=== PATIENT | male | born 1945 | race Caucasian/White ===

== ENCOUNTER 2017-01-07 12:29 | Emergency (ER) | payer MEDICARE ==
--- NOTE | 2017-01-07 13:27 | ERPHSYRPT ---
- History of Present Illness Time Seen by Provider: 01/07/17 13:23 Source: patient, family Exam Limitations: no limitations Patient Subjective Stated Complaint: PT REPORTS YESTERDAY PT COULDN'T GET OUT OF THE CHAIR-INCREASED WEAKNESS-COULDN'T FIGURE OUT HOW TO GO TO THE BATHROOM- STATES THAT HE HAS HAD INCREASED CONFUSION BEGINNING LAST NIGHT- STATES THAT HE HAS HX OF PARKINSON USUALLY ONLY TREMORS IN HIS HANDS BUT LAST NIGHT HIS WHOLE BODY WAS TREMBLING Triage Nursing Assessment: PT PALE WARM ET DRY-ALERT TO PERSON ET PLACE- STATES THAT IS NORMAL FOR PT NOT TO KNOW TIME-PUPILS PINPOINT BUT REACTIVE-PT SLOW TO MOVE BUT ABLE TO MOVE ALL EXTREMITIES Physician History: 71-year-old white male, with history of Parkinson's, noted by his to have increased tremors these have been worse since last Thursday 5 days ago she states that yesterday he was shaking all over she states the patient has been somewhat confused unable to find his way to the bathroom. Patient states he feels weak he denies any other complaints has no chest pain no nausea no vomiting no problems with his urine past medical history includes Parkinson's, sleep apnea. Past surgical history includes tonsillectomy. . Timing/Duration: other (increased tremors since 5 days confusion and shaking all over last night) Modifying Factors: Improves With: nothing Associated Symptoms: malaise, other (increased tremor and shaking all over), No nausea, No vomiting, No abdominal pain, No shortness of breath, No heartburn, No diaphoresis, No cough, No chills, No chest pain, No fever, No headaches, No loss of appetite, No rash, No syncope, No seizure, No weakness Allergies/Adverse Reactions: penicillin G Allergy (Verified 01/07/17 12:38) Swelling Home Medications: Carbidopa/Levodopa [Carbidopa-Levo 10-100 mg Odt] 10 each PO UD 08/10/13 [ History] Tamsulosin HCl 0.4 mg [Flomax 0.4 MG] 0.4 mg PO DAILY 08/10/13 [History] Aspirin 81 gm Chew [Baby Aspirin 81 mg Chew] 81 mg PO DAILY 01/07/17 [ History] Donepezil HCl 10 mg [Aricept 10 MG] 10 mg PO BID 01/07/17 [History] Melatonin 5 mg PO DAILY 01/07/17 [History] Pravastatin Sodium [Pravachol] 10 mg PO DAILY 01/07/17 [History] Quetiapine Fumarate [Seroquel] 50 mg PO HS 01/07/17 [History] Hx Tetanus, Diphtheria Vaccination/Date Given: No Hx Influenza Vaccination/Date Given: No Hx Pneumococcal Vaccination/Date Given: No Immunizations Up to Date: Yes - Review of Systems Constitutional: Weakness, No Fever, No Chills Eyes: No Symptoms Ears, Nose, & Throat: No Symptoms, No Ear Pain, No Ear Discharge, No Hearing Changes, No Tinnitus, No Nose Pain, No Nose Congestion, No Nose Discharge, No Sinus Drainage, No Epistaxis, No Mouth Pain, No Mouth Swelling, No Loose Teeth, No Throat Pain, No Throat Swelling, No Hoarse, No Painful Swallowing, No Snoring , No Stridor Respiratory: No Cough, No Dyspnea Cardiac: No Chest Pain, No Edema, No Syncope Genitourinary Symptoms: No Dysuria Musculoskeletal: No Back Pain, No Neck Pain Skin: No Rash Neurological: Tremors, Other (increased tremor and shaking all over and confusion), No Dizziness, No Focal Weakness, No Gait Changes, No Headache, No Irritability, No Lethargy, No Paralysis, No Parasthesia, No Seizure, No Sensory Changes, No Speech Changes, No Tics, No Vertigo Psychological: No Symptoms Endocrine: No Symptoms All Other Systems: Reviewed and Negative - Past Medical History Pertinent Past Medical History: Yes Neurological History: Other Respiratory History: Sleep Apnea Other Medical History: PARKINSONS - Past Surgical History Past Surgical History: Yes Other Surgical History: TONSILLECTOMY - Social History Smoking Status: Never smoker Exposure to second hand smoke: No Drug Use: none Patient Lives Alone: No - Nursing Vital Signs Nursing Vital Signs: Initial Vital Signs Temperature 98.6 F Temperature Source Oral Pulse Rate 49 Respiratory Rate 16 Blood Pressure [] 163/78 Pain Intensity 0 - Physical Exam General Appearance: no apparent distress, other (elderly white male alert oriented to person and place.) Eye Exam: PERRL/EOMI, eyes nml inspection Ears, Nose, Throat Exam: normal ENT inspection, TMs normal, pharynx normal, moist mucous membranes Neck Exam: normal inspection, non-tender, supple, full range of motion Respiratory Exam: normal breath sounds, lungs clear, No respiratory distress Cardiovascular Exam: regular rate/rhythm, normal heart sounds, normal peripheral pulses Gastrointestinal/Abdomen Exam: soft, normal bowel sounds, No tenderness, No mass Back Exam: normal inspection, normal range of motion, No CVA tenderness, No vertebral tenderness Extremity Exam: normal inspection, normal range of motion, pelvis stable Neurologic Exam: alert, oriented x 3, other (Positive tremor both upper extremities) Skin Exam: normal color, warm, dry, No rash Lymphatic Exam: No adenopathy SpO2 Interpretation: normal (95%) SpO2: 95 Oxygen Delivery: Room Air - Course Nursing assessment & vital signs reviewed: Yes EKG Interpreted by Me: RATE (62 bpm), Sinus Rhythm, Other (EKG sinus rhythm, 62 bpm, axisSI/QIII pattern, no acute ST or T wave changes noted) - Radiology Exams Chest X-ray Interpretation: Discussed w/ radiologist (chest x-ray: Impression: Stable nonacute chest) - CT Exams Head CT Interpretation: Discussed w/radiologist (head CT 1. No acute intracranial abnormalities 2. Lateral and third ventricles appear prominent out of proportion to brain atrophy. Rule out noncommunicating type hydrocephalus. 3. Global atrophy and degenerative micro-ischemia within normal limits for patient's age.) Ordered Tests: Active Orders 24 hr Category Date Time Status Accucheck STAT Care 01/07/17 13:21 Active EKG-ER Only STAT Care 01/07/17 13:21 Active IV Insertion STAT Care 01/07/17 13:21 Active CHEST 1 VIEW (PORTABLE) Stat Exams 01/07/17 13:23 Completed HEAD WITHOUT CONTRAST [CT] Stat Exams 01/07/17 13:22 Completed CBC W DIFF Stat Lab 01/07/17 14:00 Completed CMP Stat Lab 01/07/17 14:00 Completed TROPONIN Stat Lab 01/07/17 14:00 Completed UA Stat Lab 01/07/17 14:00 Completed Lab/Rad Data: Laboratory Result Diagrams 01/07/17 14:00 01/07/17 14:00 Laboratory Results 01/07/17 01/07/17 01/07/17 Range/Units 14:00 14:00 14:00 WBC (4.0-10.5) K/mm3 RBC (4.1-5.6) M/mm3 Hgb (12.5-18.0) gm/dl Hct (42-50) % MCV (78-100) fl MCH (26-32) pg MCHC (32-36) g/dl RDW (11.5-14.0) % Plt Count (150-450) K/mm3 MPV (6-9.5) fl Gran % (36.0-66.0) % Lymphocytes % (24.0-44.0) % Monocytes % (0.0-12.0) % Eosinophils % (0.00-5.0) % Basophils % (0.0-0.4) % Basophils # (0-0.4) Sodium 140 (136-145) mEq/L Potassium 3.6 (3.5-5.1) mEq/L Chloride 104 (98-107) mEq/L Carbon Dioxide 26.3 (21-32) mEq/L Anion Gap 13.4 (5-15) MEQ/L BUN 17 (9-20) mg/dL Creatinine 1.08 (0.55-1.30) mg/dl Estimated GFR > 60 ML/MIN Glucose 108 (70-110) MG/DL Calcium 8.5 (8.5-10.1) mg/dL Total Bilirubin 0.6 (0.2-1.0) mg/dL AST 12 L (15-37) U/L ALT < 6 L (12-78) U/L Alkaline Phosphatase 75 (46-116) U/L Troponin I < 0.017 (0.000-0.056) ng/ml Serum Total Protein 6.8 (6.4-8.2) gm/dL Albumin 3.4 (3.4-5.0) g/dL Ur Collection Type VOID Urine Color YELLOW (YELLOW) Urine Appearance CLEAR (CLEAR) Urine pH 7.0 (5-6) Ur Specific [place] 1.020 (1.005-1.025) Urine Protein NEGATIVE (Negative) Urine Glucose (UA) NEGATIVE (NEGATIVE) mg/dL Urine Ketones NEGATIVE (NEGATIVE) Urine Nitrite NEGATIVE (NEGATIVE) Urine Bilirubin NEGATIVE (NEGATIVE) Urine Urobilinogen 1 (0-1) mg/dL Urine WBC (Auto) NEGATIVE (NEGATIVE) Urine RBC (Auto) NEGATIVE (0-5) Leonid/ul Specimen Received 01/07/17 1430 01/07/17 Range/Units 14:00 WBC 9.1 (4.0-10.5) K/mm3 RBC 4.60 (4.1-5.6) M/mm3 Hgb 13.6 (12.5-18.0) gm/dl Hct 41.6 L (42-50) % MCV 90.4 (78-100) fl MCH 29.6 (26-32) pg MCHC 32.7 (32-36) g/dl RDW 12.9 (11.5-14.0) % Plt Count 273 (150-450) K/mm3 MPV 9.4 (6-9.5) fl Gran % 74.4 H (36.0-66.0) % Lymphocytes % 17.1 L (24.0-44.0) % Monocytes % 7.5 (0.0-12.0) % Eosinophils % 0.7 (0.00-5.0) % Basophils % 0.3 (0.0-0.4) % Basophils # 0.03 (0-0.4) Sodium (136-145) mEq/L Potassium (3.5-5.1) mEq/L Chloride (98-107) mEq/L Carbon Dioxide (21-32) mEq/L Anion Gap (5-15) MEQ/L BUN (9-20) mg/dL Creatinine (0.55-1.30) mg/dl Estimated GFR ML/MIN Glucose (70-110) MG/DL Calcium (8.5-10.1) mg/dL Total Bilirubin (0.2-1.0) mg/dL AST (15-37) U/L ALT (12-78) U/L Alkaline Phosphatase (46-116) U/L Troponin I (0.000-0.056) ng/ml Serum Total Protein (6.4-8.2) gm/dL Albumin (3.4-5.0) g/dL Ur Collection Type Urine Color (YELLOW) Urine Appearance (CLEAR) Urine pH (5-6) Ur Specific [place] (1.005-1.025) Urine Protein (Negative) Urine Glucose (UA) (NEGATIVE) mg/dL Urine Ketones (NEGATIVE) Urine Nitrite (NEGATIVE) Urine Bilirubin (NEGATIVE) Urine Urobilinogen (0-1) mg/dL Urine WBC (Auto) (NEGATIVE) Urine RBC (Auto) (0-5) Leonid/ul Specimen Received - Progress Progress: improved Progress Note: 01/07/17 16:[address] that shows no acute intracranial abnormalities however there appears to be prominent lateral and third ventricle out of proportion to brain atrophy with consideration to rule out noncommunicating type hydrocephalus Patient also with global atrophy and degenerative micro-ischemia within normal limits for patient's age patient's other labs are essentially normal I discussed the case with Dr. Nance, who is second language tutor at [employer] [facility] [employer] neurology department for Dr. Kern , I reviewed the patient' s labs and CT findings with Dr. Nance he felt that the patient could return home and follow-up with Dr. Kern. I discussed this with both the patient and his they were both agreeable to this the patient's states she will contact Dr. Kern tomorrow morning - Departure Time of Disposition: 16:20 Departure Disposition: Home Clinical Impression: Tremor, Confusion, History of Parkinson's disease Condition: Fair Critical Care Time: No Referrals: COTY NAM MD [Primary Care Provider] - Additional Instructions: Return home, rest, continue medications prescribed by your family doctor and your neurologist. Follow-up with your neurologist call tonight or in the morning. Return for acute distress or for severe symptoms.
--- NOTE | 2017-01-07 13:57 | XRAY ---
Indication: Confusion and weakness. Comparison: November 12, 2016. Portable chest remains clear again with a few calcified granulomas. Heart and mediastinal structures within normal limits for AP portable technique. Bony thorax intact. Impression: Stable nonacute chest.
--- NOTE | 2017-01-07 14:00 | XRAY ---
Indication: Weakness, tremors, and confusion. Multiple contiguous axial images obtained through the head without contrast. Comparison: None Age-appropriate global atrophy and mild periventricular degenerative micro-ischemia bilaterally. Third and lateral ventricles appear prominent out of proportion to brain atrophy. Fourth ventricle appears midline and more normal in size. Noncommunicating type hydrocephalus is of primary concern. No acute intracranial hemorrhage, abnormal extra-axial fluid collection, or mass effect. Bony calvarium intact. Visualized paranasal sinuses and mastoid air cells are pneumatized and clear. Impression: 1. No acute intracranial abnormalities. 2. Lateral and third ventricles appear prominent out of proportion to brain atrophy. Rule out noncommunicating type hydrocephalus. 3. Global atrophy and degenerative micro-ischemia within normal limits for patient's age. CTDI 70.62
[2017-01-07 14:40] LABS: BASOPHIL % 0.3 % (0.0-0.4); Eosinophil % 0.7 % (0.00-5.0); Granulocytes % 74.4 % (36.0-66.0); Lymphocytes % 17.1 % (24.0-44.0); Mean Cell Volume 90.4 fl (78-100); Mean Corpuscular Hemoglobin 29.6 pg (26-32); Mean Platelet Volume 9.4 fl (6-9.5); Monocytes % 7.5 % (0.0-12.0); Platelet Count 273 K/mm3 (150-450); Red Cell Distribution Width 12.9 % (11.5-14.0); White Blood Count 9.1 K/mm3 (4.0-10.5)
[2017-01-07 14:47] LABS: ALBUMIN 3.4 g/dL (3.4-5.0); ALKALINE PHOSPHATASE 75 U/L (46-116); ANION GAP 13.4 MEQ/L (5-15); BILIRUBIN,TOTAL 0.6 mg/dL (0.2-1.0); BLOOD UREA NITROGEN 17 mg/dL (9-20); CHLORIDE 104 mEq/L (98-107); Carbon Dioxide 26.3 mEq/L (21-32); Glucose 108 MG/DL (70-110); Potassium 3.6 mEq/L (3.5-5.1); SGOT/AST 12 U/L (15-37); SODIUM 140 mEq/L (136-145); Total Protein 6.8 gm/dL (6.4-8.2)
[2017-01-07 15:00] LABS: SGPT/ALT < 6 U/L (12-78)
[2017-01-07 15:07] LABS: COMPLETE URINE MICROSCOPIC? NO; Collection Type VOID
[2017-01-07 15:38] VITALS: BP 163/78; PULSE 49
[2017-01-07 16:21] VITALS: O2SAT 95
== END 2017-01-07 16:41 | disposition home or self-care (01) ==
LOC: ED 12:29
DX: R25.1 Tremor, unspecified (principal); R41.0 Disorientation, unspecified; G20 Parkinson's disease; R53.1 Weakness; Z79.899 Other long term (current) drug therapy; Z79.82 Long term (current) use of aspirin
CPT/HCPCS: 36000; 36415; 70450; 71010; 80053; 81002; 82962; 84484; 85025; 93005; 99284

== ENCOUNTER 2017-03-19 16:50 | Emergency (ER) | payer MEDICARE ==
--- NOTE | 2017-03-19 17:28 | ERPHSYRPT ---
- History of Present Illness Time Seen by Provider: 03/19/17 17:20 Source: patient, family Exam Limitations: clinical condition Patient Subjective Stated Complaint: here for fall today, lost balance and fell , was able to get self up but co pain to right hip and left hand. went to [facility] care and was sent down to er. concerned now because he he was shaking, and not getting around as well now Triage Nursing Assessment: pt able to get self out of wc with assistance of one , has skin tear to left hand. and pain to left hip, no brusing noted, pt able to bear sone wt on leg, has strong pedal pulse Physician History: PATIENT STATES HE FELL IN HIS BATHROOM, BROKE HIS FALL WITH HIS LEFT HAND AND COMPLAIN OF RIGHT HIP PAIN. DENIES ASSOCIATED HEAD, NECK OR BACK PAIN. Occurred: just prior to arrival Reason for Fall: tripped Injuries/Pain Location: lower extremity, upper Loss of Consciousness: no loss of consciousness Severity of Pain-Max: moderate Severity of Pain-Current: moderate Modifying Factors: Improves With: movement Associated Symptoms (Fall): extremity injury Allergies/Adverse Reactions: penicillin G Allergy (Verified 03/19/17 17:12) Swelling Home Medications: Carbidopa/Levodopa [Carbidopa-Levo 10-100 mg Odt] 10 each PO UD 08/10/13 [ History] Tamsulosin HCl 0.4 mg [Flomax 0.4 MG] 0.4 mg PO DAILY 08/10/13 [History] Aspirin 81 gm Chew [Baby Aspirin 81 mg Chew] 81 mg PO DAILY 01/07/17 [ History] Donepezil HCl 10 mg [Aricept 10 MG] 10 mg PO DAILY 01/07/17 [History] Melatonin 5 mg PO DAILY 01/07/17 [History] Pravastatin Sodium [Pravachol] 10 mg PO DAILY 01/07/17 [History] Quetiapine Fumarate [Seroquel] 50 mg PO HS 01/07/17 [History] Sertraline HCl [Zoloft] 50 mg DAILY 03/19/17 [History] Hx Tetanus, Diphtheria Vaccination/Date Given: Yes Hx Influenza Vaccination/Date Given: Yes Hx Pneumococcal Vaccination/Date Given: Yes Immunizations Up to Date: Yes - Past Medical History Pertinent Past Medical History: Yes Neurological History: Dementia, Other Cardiac History: Myocardial Infarction (MS) Respiratory History: No Pertinent History Endocrine Medical History: No Pertinent History Musculoskeletal History: No Pertinent History Other Medical History: prolapsed mitral valve, Parkinson's Disease - Past Surgical History Past Surgical History: Yes Other Surgical History: TONSILLECTOMY - Social History Smoking Status: Never smoker Exposure to second hand smoke: Yes Drug Use: none Patient Lives Alone: No - Nursing Vital Signs Nursing Vital Signs: Initial Vital Signs Temperature 97.8 F Temperature Source Oral Pulse Rate 77 Respiratory Rate 16 Blood Pressure [] 125/92 Pain Intensity 4 - Physical Exam SpO2: 97 Oxygen Delivery: Room Air - Radiology Exams Pelvis X-ray Interpretation: Interpreted by me, Negative, No Fracture Right Femur X-ray Interpretation: Interpreted by me, Negative, No Fracture (NO DISLOCATION) Ordered Tests: Active Orders 24 hr Category Date Time Status FEMUR Stat Exams 03/19/17 17:25 Taken HAND (MINIMUM 3 VIEWS) Stat Exams 03/19/17 17:27 Taken PELVIS (1 OR 2 VIEWS) Stat Exams 03/19/17 17:26 Taken - Progress Progress Note: 03/19/17 18:20 XRAY OF LEFT HAND NO FRACTURE 03/19/17 18:32- PATIENT GIVEN TYLENOL #3 ORALLY Counseled pt/family regarding: lab results, diagnosis, need for follow-up - Departure Time of Disposition: 18:45 Departure Disposition: Home Clinical Impression: RIGHT HIP CONTUSION/STRAIN Condition: Stable Critical Care Time: No Additional Instructions: CONTINUE ALL CURRENT MEDICATIONS. TYLENOL #3 EVERY 4 HOURS NEEDED FOR PAIN DISCOMFORT. FOLLOWUP WITH YOUR FAMILY PHYSICIAN IN 1 WEEK. CONTINUE AMBULATION WITH WALKER ASSISTANCE. Prescriptions: Codeine Phosphate/APAP #3 [Tylenol #3 Tablet] 1 tab PO Q4-6HPRN PRN #20 tablet PRN Reason: Pain
[2017-03-19] MEDS ORDERED: Tylenol #3 Tablet PO ONE (18:26)
[2017-03-19] MEDS ORDERED: BACIGUENT PACKET TP ONE (18:39)
[2017-03-19] MEDS ORDERED: Tylenol #3 Tablet ONE (18:40)
[2017-03-19 19:00] VITALS: BP 150/86; PULSE 84; O2SAT 95
--- NOTE | 2017-03-20 08:29 | XRAY ---
Indication: Right groin pain following fall. Comparison: None 2 views of the right femur demonstrates osteopenia, scattered vascular calcifications, and lower lumbar degenerative changes. No other bony, articular, or soft tissue abnormalities.
--- NOTE | 2017-03-20 08:31 | XRAY ---
Indication: Pain following fall. Comparison: None 3 views of the left hand demonstrates osteopenia and ring at the base of the fourth finger. Lunate bone well-circumscribed ossification and deformity presumed old injury. No other bony, articular, or soft tissue abnormalities.
--- NOTE | 2017-03-20 08:34 | XRAY ---
Indication: Right groin pain following fall. Comparison: None Single AP pelvis demonstrates osteopenia and lower lumbar degenerative changes. No other bony, articular, or soft tissue abnormalities.
== END 2017-03-19 19:02 | disposition home or self-care (01) ==
LOC: ED 16:50
DX: S70.01XA Contusion of right hip, initial encounter (principal); S73.101A Unspecified sprain of right hip, initial encounter; W18.30XA Fall on same level, unspecified, initial encounter
CPT/HCPCS: 72170; 73130; 73552; 99283; A9270-GY